=== PATIENT | female | born 1955 | race Caucasian/White ===

== ENCOUNTER → 2019-03-29 | Outpatient (CLI) | payer SELFPAY | PROVIDERS: Family Provider Family Medicine; Visit Provider Licensed Practical Nurse | DX: M51.17 Intervertebral disc disorders with radiculopathy, lumbosacral region (principal); M48.061 Spinal stenosis, lumbar region without neurogenic claudication; M47.816 Spondylosis without myelopathy or radiculopathy, lumbar region | CPT/HCPCS: 72148 ==

== ENCOUNTER 2019-04-14 13:07 | Outpatient (CLI) | payer OTHER, SELFPAY ==
--- NOTE | 2019-04-14 14:02 | XR_ITS ---
WS: [id number] CERVICAL SPINE TECHNIQUE: 3 views of the cervical spine CLINICAL INFORMATION: DEGENERATION OF LUMBAR INTERVERTEBRAL DISC, DISC DISORDER COMPARISON: None. FINDINGS: Straightening of the normal cervical lordosis with slight reversal. Mild disc space narrowing C5-C6 a nd C6-C7. Normal prevertebral soft tissues. Normal C1-2 articulation. Normal dens. XR/XR cervical spine 3V* [id number] IMPRESSION: 1. Straightening with slight reversal of the normal cervical lordosis. 2. Mild disc space narrowing C5-C6 and C6-C7. 3. Normal prevertebral soft tissues.
--- NOTE | 2019-04-14 14:02 | XR_ITS ---
WS: [id number] THORACIC SPINE TECHNIQUE: 3 views of the thoracic spine CLINICAL INFORMATION: DEGENERATION OF LUMBAR INTERVERTEBRAL DISC, DISC DISORDER COMPARISON: None. FINDINGS: Mild thoracic scoliosis convex right in the upper thoracic spine and convex left in the lower thoraci c spine. Prior vertebroplasty changes at L1. Osteopenia. No acute appearing compression fractures. Di sc space heights and vertebral body heights are otherwise well preserved. XR/XR thoracic spine 2V [id number] IMPRESSION: 1. Mild thoracic scoliosis. 2. Prior vertebroplasty changes at L1. 3. No acute appearing thoracic compression fractures.
--- NOTE | 2019-04-14 14:02 | XR_ITS ---
WS: [id number] LUMBAR SPINE TECHNIQUE: 3 views of the lumbar spine CLINICAL INFORMATION: DEGENERATION OF LUMBAR INTERVERTEBRAL DISC, DISC DISORDER COMPARISON: None. FINDINGS: Minimal lumbar curve convex left. Vertebroplasty changes at L1 with anterior wedging and loss of appr oximately 50% vertebral body height. Trace retrolisthesis L2 on L3 and L3 on L4. Mild disc space narr owing L4-L5 and L5-S1. Moderate facet arthropathy L5-S1. Osteopenia. XR/XR lumbar spine 2-3V* [id number] IMPRESSION: 1. Minimal lumbar curve convex left. 2. Chronic compression with vertebroplasty changes at L1 with loss of approxim ately 50% vertebral body height. This appears unchanged since the CT 3. Slight retrolisthesis L2 on L3 and L3 on L4. 4. Disc space narrowing worse L4-L5 and L5-S1.
== END 2019-04-14 13:08 | disposition home or self-care (01) ==
PROVIDERS: Family Provider Family Medicine; Visit Provider Family Medicine
DX: M51.17 Intervertebral disc disorders with radiculopathy, lumbosacral region (principal); M41.84 Other forms of scoliosis, thoracic region
CPT/HCPCS: 72040; 72070; 72100

== ENCOUNTER 2019-08-23 08:26 | Outpatient (CLI) | payer OTHER, SELFPAY ==
--- NOTE | 2019-08-23 09:00 | IR_ITS ---
WS: [id number] MYELOGRAM LUMBAR SPINE Fluoroscopic guided lumbar myelogram CLINICAL INFORMATION: lumbar pain COMPARISON: None. TECHNIQUE: The procedure, including risks, benefits, and complications, were discussed with the patie nt who agreed to proceed. A timeout was performed to confirm correct patient, procedure, and site. Using sterile technique, the patient was prepped and draped in the usual sterile fashion. After admin istration of local anesthesia using 1% preservative-free lidocaine and using fluoroscopic guidance, a 22-gauge spinal needle was advanced into the subarachnoid space at the L3-L4 level. Subsequently 13 cc of Omnipaque 240 was administered into the thecal sac. The needle was removed and hemostasis was a chieved. Spot fluoroscopic images were obtained. FLUOROSCOPIC TIME: 0.4 minutes. Spot fluoroscopic images demonstrate mild lumbar curve convex left. Prior kyphoplasty with chronic co mpression at L1. 5 nonrib-bearing lumbar vertebral bodies. Anterior wedging L1 with loss of approxima tely 50% vertebral body height. Posterior cortex is well-preserved. Mild retropulsion of the posterio r super cortex. Slight retrolisthesis L2 on L3, L3 on L4 and slight anterolisthesis L4 on L5. Please see CT myelogram report for additional detail. IR/IR myelogram sp lumbar [id number] IMPRESSION: 1. Uncomplicated L3-4 lumbar myelogram. 2. Mild lumbar curve convex left. 3. Compression with anterior wedging of the L1 vertebral body with vertebropla sty changes. Retropulsion of the posterior superior cortex with mild central ca nal stenosis. 4. Slight retrolisthesis L2 on L3, L3 on L4, and slight anterolisthesis L4 on L5 in the neutral position. No significant instability on flexion extension. Please see CT myelogram report for additional detail.
[2019-08-23] MEDS: iohexol 240 mg/mL 50 mL Btl INTRATHECA (09:58)
--- NOTE | 2019-08-23 11:30 | CT_ITS ---
WS: [id number] CT LUMBAR SPINE TECHNIQUE: Contrast-enhanced CT of the lumbar spine with coronal and sagittal reformatted images. CLINICAL INFORMATION: lumbar pain COMPARISON: MRI lumbar spine March 29, [address] March 04, 2019 DLP: 1819.[address] scans at [facility] use at least one of these dose optimization techniques: automat ed exposure control; mA and/or kV adjustment per patient size (includes targeted exams where dose is matched to clinical indication); or iterative reconstruction. FINDINGS: Mild lumbar curve convex left. Compression of the L1 vertebral body with anterior wedging and vertebr oplasty changes. Retropulsion of the posterior superior cortex with mild central canal stenosis. Narr owing of the subarticular recess bilaterally. This appears unchanged since the prior MRI. L1-L2: No significant disc bulging. Spinal canal and foramen are patent. Mild facet arthropathy. L2-L3: Annular bulging with slight narrowing of the right subarticular recess. Foramen are patent. Mi ld facet arthropathy. L3-L4: Mild annular bulging. Mild central canal stenosis. Slight narrowing of the subarticular recess bilaterally. Moderate facet arthropathy. Mild left and no significant right foraminal narrowing. L4-L5: Slight anterolisthesis L4 on L5. Annular bulging with narrowing of the subarticular recess wanda aterally. Moderate to advanced facet arthropathy. Mild right greater than left foraminal narrowing. L5-S1: Mild annular bulging. Mild facet arthropathy. Spinal canal and foramen are patent. Visualized pelvic bony structures: Normal. Paravertebral soft tissues: Normal. CT/CT lumbar spine w con [id number] IMPRESSION: 1. Mild lumbar curve convex left. 2. Stable chronic compression L1 vertebral body with anterior wedging and vert ebroplasty changes. Mild retropulsion of the posterior superior cortex with mil d central canal stenosis. This appears unchanged from March 29, 2019. 3. Narrowing of the subarticular recess bilaterally L3-L4 and L4-L5 is unchang ed. 4. Mild foraminal narrowing left L2-3 and left L3-4 5. Moderate facet arthropathy L3-L5.
== END 2019-08-23 08:27 | disposition home or self-care (01) ==
LOC: RADWPI 08:28
PROVIDERS: Family Provider Family Medicine; PCP Family Medicine; Visit Provider Specialist
DX: S32.010A Wedge compression fracture of first lumbar vertebra, initial encounter for closed fracture (principal); X58.XXXA Exposure to other specified factors, initial encounter; M47.816 Spondylosis without myelopathy or radiculopathy, lumbar region; M48.061 Spinal stenosis, lumbar region without neurogenic claudication
CPT/HCPCS: 62304; 72120; 72132; Q9966

== ENCOUNTER 2019-11-01 12:59 | Outpatient (CLI) | payer OTHER, SELFPAY ==
--- NOTE | 2019-11-01 14:45 | XR_ITS ---
WS: [id number] SCREENING DEXA SCAN [email or web address] CLINICAL INFORMATION: Lumbarr fracture COMPARISON: None. FINDINGS: The L1-L4 bone mineral density measures 1.13. This corresponds to a T score score of -0.5 and Z score of 0.0. Left femoral neck bone mineral density measures 0.945 g/cm2. This corresponds to a T score of -0.5 an d Z score of -0.1. Right femoral neck bone mineral density measures 0.956 g/cm2. This corresponds to a T score -0.4of an d Z score of 0.0. Mean femoral neck bone mineral density measures 0.950 g/cm2. This corresponds to a T score of -0.5 an d Z score of 0.0. XR/XR DEXA axial skeleton* [id number] IMPRESSION: Normal bone mineralization. Patient's FRAX calculated 10 year probability for major osteoporotic fracture i s 12.7 % and osteoporotic hip fracture is 1.0%.
== END 2019-11-01 13:00 | disposition home or self-care (01) ==
LOC: RADWPI 13:06
PROVIDERS: Family Provider Family Medicine; PCP Family Medicine; Visit Provider Licensed Practical Nurse
DX: S32.000A Wedge compression fracture of unspecified lumbar vertebra, initial encounter for closed fracture (principal); X58.XXXA Exposure to other specified factors, initial encounter
CPT/HCPCS: 77080

== ENCOUNTER → 2022-09-29 14:16 | Outpatient (BNVA) | payer OTHER, SELFPAY | PROVIDERS: Family Provider Family Medicine; PCP Family Medicine; Referring Provider Internal Medicine; Visit Provider Internal Medicine | DX: E05.00 Thyrotoxicosis with diffuse goiter without thyrotoxic crisis or storm (principal); E06.3 Autoimmune thyroiditis; E11.9 Type 2 diabetes mellitus without complications | CPT/HCPCS: 36415; 80048; 83516; 84432; 84439; 84443; 84480; 84681; 86337; 86341; 86376; 86800; 99204 ==

== ENCOUNTER 2023-01-08 12:28 | Outpatient (CLI) | payer OTHER, MEDICARE, SELFPAY | END 2023-01-08 12:29 | LOC: LAB 12:29 | PROVIDERS: Family Provider Family Medicine; PCP Family Medicine; Visit Provider Internal Medicine | DX: E10.9 Type 1 diabetes mellitus without complications (principal); E03.9 Hypothyroidism, unspecified; E78.2 Mixed hyperlipidemia; Z79.4 Long term (current) use of insulin; Z79.890 Hormone replacement therapy | CPT/HCPCS: 36415; 80053; 80061; 82044; 83036; 84439; 84443; 99214 ==

== ENCOUNTER 2023-01-22 12:26 | Outpatient (CLI) | payer OTHER, SELFPAY ==
[2023-01-23 11:28] LABS: T3 Total 134 ng/dL (76-181)
== END 2023-01-22 12:27 | disposition home or self-care (01) ==
LOC: LAB 12:29
PROVIDERS: PCP Family Medicine; Visit Provider Internal Medicine
DX: E03.9 Hypothyroidism, unspecified (principal)
CPT/HCPCS: 36415; 84480

== ENCOUNTER → 2023-03-26 08:30 | Outpatient (BNVA) | payer OTHER, SELFPAY | PROVIDERS: PCP Family Medicine; Visit Provider Internal Medicine | DX: E03.9 Hypothyroidism, unspecified (principal); E78.2 Mixed hyperlipidemia; E10.9 Type 1 diabetes mellitus without complications; Z79.890 Hormone replacement therapy; Z79.4 Long term (current) use of insulin; Z79.84 Long term (current) use of oral hypoglycemic drugs | CPT/HCPCS: 99214 ==

== ENCOUNTER 2023-04-09 14:15 | Outpatient (CLI) | payer OTHER, SELFPAY ==
[2023-04-09 15:13] LABS: Creatinine Urine, Random 46 mg/dL (28-217); Microalbum Creatinine Ratio Ur 22 mg/dL (0-20); Microalbumin Random Urine 1 ug/dL (0-20)
[2023-04-09 15:23] LABS: Alanine Aminotransferase 11 U/L (0-33); Albumin Level 4.1 g/dL (3.5-5.2); Alkaline Phosphatase 71 U/L (35-105); Anion Gap 12.3 (5-19); Aspartate Amino Transferase 13 U/L (0-32); Blood Urea Nitrogen 13 mg/dL (8-23); Calcium 9.3 mg/dL (8.5-10.5); Carbon Dioxide 28 mmol/L (22-29); Chloride 102 mmol/L (98-107); Chol HDL Ratio 5.42 mg/dL (0.0-4.40); Cholesterol 298 mg/dL (0-200); Free T4 Free Thyroxine 0.87 ng/dL (0.82-1.77); Glucose 104 mg/dL (65-115); HDL Cholesterol 55 mg/dL (60-100); LDL Cholesterol Calculated 166 mg/dL (50-129); LDL HDL Ratio 3.02 RATIO (0.00-3.22); Osmolality Calculated 286 mOsm/kg (285-295); Potassium 4.3 mmol/L (3.5-5.1); Sodium 138 mmol/L (136-145); Thyroid Stimulating Hormone 0.68 uIU/mL (0.27-4.20); Total Bilirubin 0.3 mg/dL (0.15-1.2); Total Protein 7.1 g/dL (6.6-8.7); Triglycerides 387 mg/dL (0-150)
[2023-04-09 15:34] LABS: Estmated Average Glucose 148; Hemoglobin A1C 6.8 % (4.0-6.0)
== END 2023-04-09 14:16 | disposition home or self-care (01) ==
LOC: LAB 14:15
PROVIDERS: PCP Family Medicine; Visit Provider Internal Medicine
DX: E10.9 Type 1 diabetes mellitus without complications (principal); E03.9 Hypothyroidism, unspecified
CPT/HCPCS: 36415; 80053; 80061; 82044; 83036; 84439; 84443

== ENCOUNTER → 2023-05-21 10:39 | Outpatient (BNVA) | payer OTHER, SELFPAY | PROVIDERS: PCP Nurse Practitioner; Visit Provider Internal Medicine | DX: E03.9 Hypothyroidism, unspecified (principal); E78.2 Mixed hyperlipidemia; E10.9 Type 1 diabetes mellitus without complications; Z79.4 Long term (current) use of insulin; Z79.890 Hormone replacement therapy | CPT/HCPCS: 99214 ==

== ENCOUNTER 2023-09-06 17:23 | Emergency (ER) | payer OTHER, MEDICARE, SELFPAY ==
[2023-09-06 17:30] VITALS: BP 144/82; PULSE 74; RESP 16; TEMP 36.5; O2SAT 96; BMI 30.7
--- NOTE | 2023-09-06 17:40 | XRR_ITS ---
PROCEDURE INFORMATION: Exam: XR Left Tibia and Fibula Exam date and time: 09/06/2023 6:06 PM Age: 67 years old Clinical indication: Left; Patient HX: Lt lower leg pain post fall TECHNIQUE: Imaging protocol: Radiologic exam of the left tibia and fibula. Views: 2 views. COMPARISON: No relevant prior studies available. FINDINGS: Bones/joints: Normal. Soft tissues: Normal. XR/XR tibia fibula LT 2V [id number] IMPRESSION: No acute findings.
--- NOTE | 2023-09-06 17:40 | XRR_ITS ---
PROCEDURE INFORMATION: Exam: XR Right Hip Exam date and time: 09/06/2023 6:06 PM Age: 67 years old Clinical indication: Right hip; Patient HX: RT hip pain post fall TECHNIQUE: Imaging protocol: Radiologic exam of the right hip. Views: 1 view hip with pelvis when performed. COMPARISON: CT lumbar spine w con [id number] 08/23/2019 10:04 AM FINDINGS: Bones/joints: Moderate asymmetric degenerative changes are seen at right femoroacetabular joint. No findings of fracture or dislocation. Soft tissues: Unremarkable. XR/XR hip RT 2-3V wo/w pel* [id number] IMPRESSION: No acute findings.
[2023-09-06 17:46] VITALS: BP 159/71; PULSE 72; O2SAT 95
--- NOTE | 2023-09-06 17:59 | W.ED.EXTPRO ---
HPI - Extremity Problem General: Chief complaint: Extremity Injury, Lower Stated complaint: fall from 4 ft, right hip and left leg pain Time Seen by Provider: 09/06/23 17:37 History of Present Illness: Patient presents to the ER after falling about 4 feet. Patient says she slipped and fell sideways on her right hip and her left calf area. Patient denies loss of consciousness. Patient is able to walk. Patient does have bruising and swelling on her left lower extremity and this hurts her the most. But also her right hip hurts. Review of Systems General: Reports: 10 or more systems reviewed and unremarkable except in HPI and below PFSH ED PFSH: Medical History (Updated 09/06/23 @ 19:39 by Shun Nicholson DO) Lumbar disc disease Intervertebral disc disorders with radiculopathy, lumbosacral region Fracture, lumbar vertebra, compression Surgical History History of kyphoplasty (11/23/18) [facility], L1 Family History Mother Cancer Father Cancer Grandfather Cancer Social History Smoking and tobacco/nicotine status: never used tobacco/nicotine Alcohol intake: current Substance/Drug Use: never Lives independently: Yes Household members: spouse Marital status: service: Yes branch: [employer] Current occupational status: retired Physical Exam Const: COMMON NORMALS: no acute distress, average body habitus, patient oriented x3, no limitations, healthy appearing, alert and well nourished HENMT: COMMON NORMALS: normocephalic, atraumatic, hearing grossly normal bilaterally, external ears normal, Normal external nose present and moist oral mucous membranes HEAD & SCALP: normocephalic and atraumatic NOSE: Normal external nose present EXTERNAL EAR: Yes external ears normal Neck/C-Spine: COMMON NORMALS: full ROM, no lymphadenopathy, supple, no meningeal signs and no JVD Chest: COMMONS NORMALS: normal inspection of the chest and normal palpation of entire chest wall Resp: COMMON NORMALS: normal respiratory effort, No retractions, No use of accessory muscles and clear to auscultation bilaterally AUSCULTATION: clear to auscultation bilaterally Cardio: COMMON NORMALS: no JVD, regular rate, regular rhythm, S1 normal heart sound present, S2 normal heart sound present, No gallops present (Cardio), No clicks present (Cardio) and No murmurs present (Cardio) RATE: regular rate RHYTHM: regular rhythm HEART SOUNDS: S1 normal heart sound present and S2 normal heart sound present GI: COMMON NORMALS: Normal to inspection, nondistended, normoactive bowel sounds present, Soft to palpation, non-tender, No hepatosplenomegaly present and no masses PALPATION: Yes Soft to palpation and Yes No hepatosplenomegaly present Extremity: NARRATIVE EXTREMITY EXAM: Left posterior calf swollen bruised tender to palpate, right hip tender to palpate, no obvious deformity in either location. Neuro: COMMON NORMALS: patient oriented x3 SENSORIUM/ORIENTATION: Yes alert MENINGEAL SIGNS: Yes no meningeal signs Course Vital Signs: Vital signs: Vital Signs Temperature 97.7 F 09/06/23 17:30 Pulse Rate 72 09/06/23 17:46 Respiratory Rate 16 09/06/23 17:30 Blood Pressure 159/71 09/06/23 17:46 Pulse Oximetry 95 09/06/23 17:46 Oxygen Delivery Me thod Room Air 09/06/23 17:46 MDM - Extremity (Nontraumatic) Medical Decision Making We are waiting for her x-rays to come back patient says she wanted to leave and left AMA. Differential Diagnosis Unlikely herpes zoster, gout, cellulitis, superficial thrombophlebitis, deep venous thrombosis of upper extremity, lower extremity edema or deep vein thrombosis of lower extremity Medical Records I reviewed the patient's medical records. Lab Data I reviewed the patient's lab results. Radiology Impressions Hip/Pelvis X-Ray 09/06/23 17:40 IMPRESSION: No acute findings. Tibia/Fibula X-Ray 09/06/23 17:40 IMPRESSION: No acute findings. All radiology interpretation(s) finalized by discharge Discharge Plan Discharge Patient Disposition: Left Against Medical Advice Clinical Impression: Fall Condition: Stable Prescriptions: No Action cholecalciferol (vitamin D3) 4,000 unit capsule 4,000 unit PO DAILY thyroid (pork) [Bourbon Thyroid] 120 mg tablet 120 mg PO DAILY (DME) Accu-Chek Guide test strips Strip See Rx Instructions .Route Qty: 100 2RF Rx Instructions: As directed (DME) pen needle, diabetic [Comfort EZ Pen Panther Burn] 32 gauge x 5/16 needle See Rx Instructions .Route Qty: 100 2RF Rx Instructions: As directed insulin glargine [Lantus Solostar U-100 Insulin] 100 unit/mL (3 mL) insulin pen 12 unit SUBCUT BID 90 Days Qty: 30 1RF (DME) pen needle, diabetic [Easy Comfort Pen Panther Burn] 32 gauge x 5/32 needle See Rx Instructions .ROUTE .MEDSUPPLY Qty: 200 0RF Rx Instructions: BID Referrals: Yesenia Salinas FNP [Primary Care Provider] - Coding Level of Care Code ED Management Trainee for Chg Michael
[2023-09-06 20:00] VITALS: BP 159/71; PULSE 72; RESP 16; TEMP 36.5; O2SAT 95
== END 2023-09-06 20:01 | disposition left against medical advice (07) ==
PROVIDERS: Emergency Provider Emergency Medicine; PCP Nurse Practitioner
DX: S80.12XA Contusion of left lower leg, initial encounter (principal); M25.551 Pain in right hip; Z79.4 Long term (current) use of insulin; W17.89XA Other fall from one level to another, initial encounter; Z53.29 Procedure and treatment not carried out because of patient's decision for other reasons
CPT/HCPCS: 73502; 73590; 99284

== ENCOUNTER → 2023-11-26 08:53 | Outpatient (BNVA) | payer OTHER, SELFPAY | PROVIDERS: PCP Nurse Practitioner; Visit Provider Internal Medicine | DX: E03.9 Hypothyroidism, unspecified (principal); E78.2 Mixed hyperlipidemia; E10.9 Type 1 diabetes mellitus without complications; Z79.4 Long term (current) use of insulin; Z79.890 Hormone replacement therapy | CPT/HCPCS: 36415; 80053; 80061; 82044; 83036; 84439; 84443; 99214 ==

== ENCOUNTER → 2024-05-25 11:56 | Outpatient (BNVA) | payer OTHER, SELFPAY | PROVIDERS: PCP Nurse Practitioner; Visit Provider Internal Medicine | DX: E03.9 Hypothyroidism, unspecified (principal); E78.2 Mixed hyperlipidemia; E10.9 Type 1 diabetes mellitus without complications | CPT/HCPCS: 99214 ==

== ENCOUNTER → 2024-10-04 11:49 | Outpatient (BNVA) | payer OTHER, SELFPAY | PROVIDERS: PCP Nurse Practitioner; Visit Provider Internal Medicine | DX: E03.9 Hypothyroidism, unspecified (principal); E78.2 Mixed hyperlipidemia; E10.9 Type 1 diabetes mellitus without complications; Z79.4 Long term (current) use of insulin | CPT/HCPCS: 99214 ==

== ENCOUNTER → 2024-11-23 11:31 | Outpatient (BNVA) | payer OTHER, SELFPAY | PROVIDERS: PCP Nurse Practitioner; Visit Provider Internal Medicine | DX: E10.9 Type 1 diabetes mellitus without complications (principal); E03.9 Hypothyroidism, unspecified; E78.2 Mixed hyperlipidemia | CPT/HCPCS: 99214 ==

== ENCOUNTER 2025-02-10 14:53 | Outpatient (CLI) | payer OTHER, SELFPAY ==
[2025-02-10 15:44] LABS: Estmated Average Glucose 151; Hemoglobin A1C 6.9 % (4.0-6.0)
[2025-02-10 15:52] LABS: Creatinine Urine, Random 46 mg/dL (28-217); Microalbum Creatinine Ratio Ur 22 mg/dL (0-20)
[2025-02-10 15:56] LABS: Alanine Aminotransferase 14 U/L (0-33); Albumin Level 4.4 g/dL (3.5-5.2); Alkaline Phosphatase 89 U/L (35-105); Anion Gap 15.1 (5-19); Aspartate Amino Transferase 13 U/L (0-32); Blood Urea Nitrogen 13 mg/dL (8-23); Calcium 9.3 mg/dL (8.5-10.5); Carbon Dioxide 27 mmol/L (22-29); Chloride 102 mmol/L (98-107); Cholesterol 336 mg/dL (0-200); Globulin 3.3 g/dL (1.3-4.6); Glucose 95 mg/dL (65-115); HDL Cholesterol 69 mg/dL (60-100); Osmolality Calculated 290 mOsm/kg (285-295); Potassium 4.1 mmol/L (3.5-5.1); Sodium 140 mmol/L (136-145); Total Protein 7.7 g/dL (6.6-8.7); Triglycerides 246 mg/dL (0-150)
== END 2025-02-10 14:54 | disposition home or self-care (01) ==
LOC: LAB 14:54
PROVIDERS: PCP Nurse Practitioner; Visit Provider Internal Medicine
DX: E10.9 Type 1 diabetes mellitus without complications (principal); E03.9 Hypothyroidism, unspecified
CPT/HCPCS: 36415; 80053; 80061; 82044; 83036

== ENCOUNTER → 2025-03-15 16:11 | Outpatient (BNVA) | payer OTHER, SELFPAY | PROVIDERS: PCP Nurse Practitioner; Visit Provider Internal Medicine Endocrinology, Diabetes & Metabolism | DX: E03.9 Hypothyroidism, unspecified (principal); E78.2 Mixed hyperlipidemia; E10.9 Type 1 diabetes mellitus without complications; R03.0 Elevated blood-pressure reading, without diagnosis of hypertension | CPT/HCPCS: 99214 ==